=== PATIENT | female | born 1970 | race Two or more races ===

== ENCOUNTER 2020-07-24 09:27 | Emergency (ER) | payer OTHER ==
[~2020-07-24] VITALS: Ht 160 cm; Wt 85.7 kg
[~2020-07-24 09:27] MED LIST: KETO10TA2 PO; NORFLEX100MG PO
== END 2020-07-24 14:41 | disposition home or self-care (01) ==
LOC: ER 09:27
DX: R53.81 Other malaise (principal); R51.9 Headache, unspecified; Z03.818 Encounter for observation for suspected exposure to other biological agents ruled out

== ENCOUNTER 2024-07-22 19:51 | Emergency (ER) | payer OTHER ==
[~2024-07-22] VITALS: Ht 160 cm; Wt 81.2 kg
[2024-07-22] MEDS ORDERED: DEXAMETHASONE SODIUM PHOSPHATE 4 MG/ML VIAL IM STA (20:35)
[2024-07-22] MEDS ORDERED: KETOROLAC TROMETHAMINE 60 MG VIAL IM STA (20:35)
[2024-07-22] MEDS ORDERED: DEXAMETHASONE SODIUM PHOSPHATE 4 MG/ML VIAL ONE (20:41)
[2024-07-22] MEDS ORDERED: KETOROLAC TROMETHAMINE 60 MG VIAL IM ONE ×2 (20:42→21:08)
[2024-07-22 21:17] LABS: HEMATOCRIT 30.5 % (36.0-45.00); HEMOGLOBIN 10.2 g/dL (12.0-15.00); MEAN CELL VOLUME 77.9 fL (80.00-100.00); MEAN CORPUSCULAR HGB CONC 33.4 g/dl (32.0-36.0); PLATELET COUNT 232 K/uL (150-450); RED BLOOD COUNT 3.91 M/uL (4.00-6.00); RED CELL DISTRIBUTION WIDTH 19.8 % (11.5-14.5)
[2024-07-22 21:23] LABS: ALBUMIN 3.7 gm/dL (3.4-5.0); BILIRUBIN TOTAL 0.22 mg/dL (0.3-1.2); CALCIUM 9.1 mg/dL (8.5-10.1); CREATININE SERUM 0.82 mg/dL (0.55-1.02); GFR 73.49; GLOBULINA 3.3 G/DL (2.4-3.5); POTASSIUM 4.4 mEq/L (3.5-5.1)
[2024-07-22 22:03] LABS: PH,URINE 5.5 (5.0-8.0); URINE APPEARANCE Turbid; URINE BILIRRUBIN Negative (NEGATIVE); URINE BLOOD Small; URINE COLOR Yellow; URINE EPITHELIAL CELLS 7.2 uL (0.0-38.8); URINE GLUCOSE Negative (NEGATIVE); URINE KETONE Negative (NEGATIVE); URINE LEUKOCYTE Large; URINE NITRATE Positive; URINE PROTEIN 30 (NEGATIVE); URINE RBC 6.7 uL (0.0-20.8); URINE UROBILINOGEN 0.2 E.U./dl
[2024-07-22 22:36] LABS: URINE BACTERIA > 9821.5 uL (0.0-1933); URINE CAST 0.88 uL (0.0-1.40); URINE WBC > 5548.3 uL (0.0-23.2)
[2024-07-22 22:40] LABS: URINE YEAST NEGATIVE /hpf
[2024-07-22] MEDS ORDERED: CEFTRIAXONE SODIUM 1,000 MG VIAL IM STA (22:54)
== END 2024-07-22 23:01 | disposition home or self-care (01) ==
LOC: ER 19:51
DX: M54.50 Low back pain, unspecified (principal); N39.0 Urinary tract infection, site not specified; N20.0 Calculus of kidney